=== PATIENT | female | born 1995 | race Caucasian/White ===

== ENCOUNTER 2017-06-02 18:12 | Inpatient (IN) | payer OTHER ==
[~2017-06-02] VITALS: Ht 167.6 cm; Wt 72.3 kg
[2017-06-02 18:50] VITALS: BP 111/74
[2017-06-02] MEDS ORDERED: IBUPROFEN 400 MG TAB ONE (19:04)
[2017-06-02] MEDS ORDERED: ACETAMINOPHEN EXTRA STRENGTH 500 MG TAB ONE (19:05)
[2017-06-02] MEDS ORDERED: IBUPROFEN 400 MG TAB PO STA (19:06)
[2017-06-02] MEDS ORDERED: ACETAMINOPHEN EXTRA STRENGTH 500 MG TAB PO STA (19:06)
[2017-06-02] MEDS ORDERED: NACL 0.9% 1,000 ML IV SCH (19:19)
[2017-06-02 19:24] LABS: APPEARANCE,URINE CLEAR (CLEAR); BILIRUBIN,URINE NEGATIVE (NEGATIVE); BLOOD, URINE TRACE-I (NEGATIVE); COLOR,URINE YELLOW (YELLOW); LEUKOCYTE ESTERASE ,URINE NEGATIVE (NEGATIVE); NITRITE, URINE NEGATIVE (NEGATIVE); PH,URINE 5.5 (5.0-9.0); UGLUCOSE NEGATIVE (NEGATIVE)
[2017-06-02] MEDS ORDERED: MORPHINE SULFATE 2 MG/ML SYR IVP ONE (19:35)
[2017-06-02] MEDS ORDERED: ONDANSETRON 4 MG/2 ML VIAL IVP ONE (19:35)
[2017-06-02 19:46] LABS: RBC,URINE 0-5 (RARE) /HPF (0-5); WBC,URINE 0-5 (RARE) /HPF (0-5)
[2017-06-02 20:00] LABS: CARBON DIOXIDE 22.6 mmol/L (21-32); CREATININE 0.8 mg/dL (0.6-1.3); POTASSIUM 3.6 mmol/L (3.5-5.1)
[2017-06-02 20:02] LABS: BASOPHILS # (AUTO) 0.1 K/uL (0.00-0.22); BASOPHILS % (AUTO) 0.7 % (0.0-2.0); EOSINOPHILS % (AUTO) 0.2 % (0.0-4.0); HEMATOCRIT 38.4 % (36-48); HEMOGLOBIN 12.7 g/dL (12.0-16.0); LYMPHOCYTES % (AUTO) 6.3 % (20.5-51.1); MEAN CORPUSCULAR HEMOGLOBIN 28 pg (27-31); MEAN CORPUSCULAR HGB CONC 33 g/dL (33-37); MEAN CORPUSCULAR VOLUME 86 fL (80-94); MONOCYTES # (AUTO) 1.1 K/uL (0.8-1.0); MONOCYTES % (AUTO) 7.2 % (1.7-9.3); NEUTROPHILS # (AUTO) 13.6 K/uL (1.8-7.7); NEUTROPHILS % (AUTO) 85.6 % (42.2-75.2); PLATELET COUNT (AUTO) 264 K/uL (140-450); RED BLOOD CELL COUNT(AUTO) 4.49 MIL/uL (4.20-5.40); RED CELL DISTRIBUTION WIDTH 12.2 % (11.6-13.7); WHITE BLOOD COUNT (AUTO) 15.8 K/uL (4.8-10.8)
[2017-06-02 20:06] LABS: ALBUMIN 3.4 g/dL (3.4-5.0); TOTAL BILIRUBIN 0.4 mg/dL (0.0-1.0)
[2017-06-02 20:07] LABS: PROTHROMBIN TIME 11.5 secs (10.8-13.4)
[2017-06-02] MEDS ORDERED: fentaNYL 0.05 MG/ML VIAL IVP ONE (20:10)
[2017-06-02] MEDS ORDERED: PIPERACILLIN/TAZOBACTAM 3.375 GM in DEXTROSE 5% 50 ML IV ONE (22:05)
[2017-06-02] MEDS ORDERED: NACL 0.9% 1,000 ML IV ONE (22:10)
[2017-06-02] MEDS ORDERED: PIPERACILLIN/TAZOBACTAM 3.375 GM VIAL IV ONE (22:14)
[2017-06-02] MEDS ORDERED: ACETAMINOPHEN 325 MG TAB PO PRN (22:15)
[2017-06-02] MEDS ORDERED: cefTRIAXone 1,000 MG VIAL ONE (23:17)
[2017-06-02 23:30] VITALS: BP 107/65
[2017-06-02] MEDS: NACL 0.9% 1,000 ML IV SCH (23:30)
[2017-06-03] MEDS: MORPHINE SULFATE 4 MG/ML SYR IVP PRN ×2 (04:31→12:25)
[2017-06-03] MEDS: ONDANSETRON 4 MG/2 ML VIAL IVP PRN ×3 (05:40→18:11)
[2017-06-03] MEDS: HYDROcodone/APAP 5/325 MG 1 TAB TAB PO PRN ×3 (06:14→22:21)
[2017-06-03 06:59] LABS: BASOPHILS # (AUTO) 0.1 K/uL (0.00-0.22); BASOPHILS % (AUTO) 0.7 % (0.0-2.0); EOSINOPHILS # (AUTO) 0.2 K/uL (0-0.4); EOSINOPHILS % (AUTO) 1.4 % (0.0-4.0); HEMATOCRIT 35.3 % (36-48); LYMPHOCYTES # (AUTO) 0.9 K/uL (2.5-16.5); LYMPHOCYTES % (AUTO) 6.8 % (20.5-51.1); MEAN CORPUSCULAR HEMOGLOBIN 29 pg (27-31); MEAN CORPUSCULAR HGB CONC 34 g/dL (33-37); MEAN CORPUSCULAR VOLUME 85 fL (80-94); MONOCYTES # (AUTO) 1.2 K/uL (0.8-1.0); MONOCYTES % (AUTO) 9.3 % (1.7-9.3); NEUTROPHILS % (AUTO) 81.8 % (42.2-75.2); PLATELET COUNT (AUTO) 226 K/uL (140-450); RED BLOOD CELL COUNT(AUTO) 4.16 MIL/uL (4.20-5.40); RED CELL DISTRIBUTION WIDTH 12.4 % (11.6-13.7)
[2017-06-03 07:38] LABS: WHITE BLOOD COUNT (AUTO) 13.4 K/uL (4.8-10.8)
[2017-06-03 07:39] LABS: ANION GAP 10.6 (8-16); CARBON DIOXIDE 24.1 mmol/L (21-32); CREATININE 0.8 mg/dL (0.6-1.3); POTASSIUM 3.7 mmol/L (3.5-5.1); TOTAL BILIRUBIN 0.3 mg/dL (0.0-1.0)
[2017-06-03 07:40] LABS: ALBUMIN 2.7 g/dL (3.4-5.0); MAGNESIUM 1.8 mg/dL (1.8-2.4)
[2017-06-03 08:00] VITALS: BP 95/60
[2017-06-03] MEDS: NACL 0.9% 1,000 ML IV SCH (11:33)
[2017-06-03 12:25] VITALS: BP 113/73
[2017-06-03 16:24] VITALS: BP 99/66
[2017-06-04] VITALS: BP 90/56
[2017-06-04] MEDS: NACL 0.9% 1,000 ML IV SCH (00:53)
[2017-06-04 08:00] VITALS: BP 104/75
[2017-06-04] MEDS ORDERED: CEPH250C16 PO (09:59)
[2017-06-04] MEDS ORDERED: ACET-1182 PO (09:59)
[2017-06-04] MEDS ORDERED: MORPHINE SULFATE 2 MG/ML SYR IVP PRN (10:10)
== END 2017-06-04 11:15 | disposition home or self-care (01) | DRG 720 ==
LOC: MED 18:12 → MTU 22:18
PROVIDERS: ADMIT Hospitalist; ATTEND Hospitalist
DX: A41.9 Sepsis, unspecified organism (principal); N28.1 Cyst of kidney, acquired; N12 Tubulo-interstitial nephritis, not specified as acute or chronic; Z90.49 Acquired absence of other specified parts of digestive tract
CPT/HCPCS: 36415; 71045; 80053; 81001; 81025; 83605; 83690; 83735; 85025; 85610; 87040; 87081; 87086; 87804; 96365; 96375; 99285; J0696; J2270; J2405; J2543; J3010; J7030; J7060; Q0092